=== PATIENT | female | born 1960 | race Caucasian/White ===

== ENCOUNTER 2016-11-15 16:45 | Emergency (ER) | payer MEDICARE, MEDICAID ==
[~2016-11-15] VITALS: Ht 162.6 cm; Wt 74.8 kg
[~2016-11-15 16:45] MED LIST: ACET-2178 PO; AMLO10TA80 PO; ARIP10TA16 PO; ASPI-1079 PO; BACL-141 PO; CIPR-213 PO; CITA20TA19 PO; CLON0.1T PO; FERR-63 PO; FLUO20CA33 PO; HYDR-3927 PO; HYDR100T26 PO; LISI-604 PO; LORA-250 PO; METF10002 PO; METO25TA6 PO; NICO1PAT15 TP; OLAN5TAB3 PO; PREG50CA PO; PROT40 PO; QUET100T PO; TEMA15CA PO; TRAM50TA73 PO
[2016-11-15] MEDS ORDERED: SODIUM CHLORIDE 0.9% 1,000 ML IV ONE (17:36)
[2016-11-15] MEDS ORDERED: ONDANSETRON HCL 4MG/2ML VIAL IV ONE (17:45)
[2016-11-15 17:59] LABS: BASOPHILS % 0.4 % (0.0-2.0); EOSINOPHILS % 3.2 % (0.0-5.0); HEMATOCRIT. 36.4 % (36.0-48.0); HEMOGLOBIN. 11.9 g/dL (12.0-16.0); LYMPHOCYTES % 21.1 % (20.0-50.0); MEAN CORPUSCULAR HEMOGLOBIN 28.1 pg (28.0-32.0); MEAN CORPUSCULAR HGB CONC 32.6 g/dL (31.0-37.0); MEAN CORPUSCULAR VOLUME 86.3 fL (81.0-99.0); MEAN PLATELET VOLUME 8.3 fl (7.4-10.4); NEUTROPHILS % 67.3 % (40.0-76.0); PLATELET 65 x1000/uL (130-400); RED BLOOD CELL COUNT 4.22 mill/uL (4.2-5.4); RED CELL DISTRIBUTION WIDTH 16.9 % (11.6-14.6); WHITE BLOOD COUNT 2.9 x1000/uL (4.5-11.0)
[2016-11-15] MEDS ORDERED: IBUPROFEN 800MG TABLET PO ONE (18:00)
[2016-11-15 18:16] LABS: ALANINE AMINOTRANSFERASE 149 IU/L (13-61); ALBUMIN 2.6 g/dL (3.4-5.0); ANION GAP 9; BETA HYDROXYBUTYRATE 0.1 mMol/L (0.0-0.3); CALCIUM 8.5 mg/dL (8.5-10.1); CARBON DIOXIDE 26 mEq/L (21-32); CHLORIDE 107 mEq/L (98-107); ETHANOL BLOOD < 10 mg/dL; INDEX HEMOLYSI 1 (1-3); INDEX ICTERIC 1 (1-4); INDEX LIPEMIC 1 (1-3); LIPASE 308 IU/L (73-393); NT PRO B-TYPE NATRIURETIC PEP 41 pg/mL (5-125); TROPONIN I < 0.02 ng/mL (0.00-0.04); UREA NITROGEN BLOOD 13 mg/dL (7-21); eGFR > 60 mL/min (>60)
[2016-11-15] MEDS ORDERED: INSULIN REGULAR (HUMULIN R) 300UNITS/3ML IV ONE (19:00)
[2016-11-15] MEDS ORDERED: LOPERAMIDE HCL 2MG CAPSULE PO ONE (19:30)
[2016-11-15 21:20] VITALS: BP 170/80
== END 2016-11-15 21:20 | disposition home or self-care (01) ==
LOC: ER 16:46
DX: E11.65 Type 2 diabetes mellitus with hyperglycemia (principal); K52.9 Noninfective gastroenteritis and colitis, unspecified; I11.0 Hypertensive heart disease with heart failure; I50.9 Heart failure, unspecified; J44.9 Chronic obstructive pulmonary disease, unspecified; F32.9 Major depressive disorder, single episode, unspecified; I25.2 Old myocardial infarction; Z88.0 Allergy status to penicillin; Z79.82 Long term (current) use of aspirin; Z79.899 Other long term (current) drug therapy
CPT/HCPCS: 36415; 71010; 80053; 82010; 82962; 83690; 83880; 84484; 85025; 93005; 96361; 96374; 96375; 99285; G0482; J1815; J2405; J7030

== ENCOUNTER 2016-11-15 21:39 | Emergency (ER) | payer MEDICARE, MEDICAID ==
[~2016-11-15] VITALS: Ht 160 cm; Wt 69.0 kg
[2016-11-16 00:56] LABS: BASOPHILS % 0.9 % (0.0-2.0); CHLORIDE 109 mEq/L (98-107); EOSINOPHILS % 4.8 % (0.0-5.0); HEMATOCRIT. 33.5 % (36.0-48.0); INDEX HEMOLYSI 1 (1-3); INDEX ICTERIC 1 (1-4); INDEX LIPEMIC 1 (1-3); LYMPHOCYTES % 25.3 % (20.0-50.0); MEAN CORPUSCULAR HEMOGLOBIN 28.2 pg (28.0-32.0); MEAN CORPUSCULAR HGB CONC 32.9 g/dL (31.0-37.0); MEAN CORPUSCULAR VOLUME 85.6 fL (81.0-99.0); MEAN PLATELET VOLUME 8.7 fl (7.4-10.4); MONOCYTES % 8.5 % (2.0-8.0); NEUTROPHILS % 60.5 % (40.0-76.0); PLATELET 64 x1000/uL (130-400); RED BLOOD CELL COUNT 3.91 mill/uL (4.2-5.4); RED CELL DISTRIBUTION WIDTH 16.8 % (11.6-14.6); WHITE BLOOD COUNT 2.5 x1000/uL (4.5-11.0)
[2016-11-16 01:02] LABS: ACETAMINOPHEN < 2 ug/mL (10-30); ANION GAP 11; CALCIUM 8.2 mg/dL (8.5-10.1); CARBON DIOXIDE 24 mEq/L (21-32); ETHANOL BLOOD < 10 mg/dL; UREA NITROGEN BLOOD 14 mg/dL (7-21); eGFR > 60 mL/min (>60)
[2016-11-16] MEDS ORDERED: INSULIN REGULAR (HUMULIN R) 300UNITS/3ML SUBCUT ONE (01:30)
[2016-11-16 02:00] LABS: *AMPHETAMINES SCREEN URINE NEGATIVE (NEGATIVE); *BARBITURATES SCREEN URINE NEGATIVE (NEGATIVE); *BENZODIAZEPINES SCREEN URINE NEGATIVE (NEGATIVE); *COCAINE SCREEN URINE NEGATIVE (NEGATIVE); CANNABINOID URINE SCREEN NEGATIVE (NEGATIVE); ECSTASY MDMA SCREEN URINE NEGATIVE (NEGATIVE); METHADONE URINE SCREEN NEGATIVE (NEGATIVE); OPIATES URINE SCREEN NEGATIVE (NEGATIVE); PHENCYCLIDINE URINE SCREEN NEGATIVE (NEGATIVE)
[2016-11-16] MEDS ORDERED: LORAZEPAM 1MG TABLET PO ONE ×2 (07:00→13:45)
[2016-11-16] MEDS ORDERED: ACETAMINOPHEN 500MG TABLET PO ONE (11:30)
[2016-11-16] MEDS ORDERED: LISINOPRIL 20MG TABLET PO ONE (13:45)
[2016-11-16] MEDS ORDERED: AMLODIPINE 10MG TABLET PO ONE (13:45)
[2016-11-16 16:19] VITALS: BP 142/73
== END 2016-11-16 18:32 ==
LOC: ER 21:39
DX: R45.851 Suicidal ideations (principal); R44.0 Auditory hallucinations; Z79.82 Long term (current) use of aspirin; F41.9 Anxiety disorder, unspecified; F32.9 Major depressive disorder, single episode, unspecified; E11.9 Type 2 diabetes mellitus without complications; Z87.898 Personal history of other specified conditions; J44.9 Chronic obstructive pulmonary disease, unspecified; Z79.4 Long term (current) use of insulin; Z88.0 Allergy status to penicillin; I25.2 Old myocardial infarction; I50.9 Heart failure, unspecified; Z91.012 Allergy to eggs; Z91.013 Allergy to seafood; Z91.09 Other allergy status, other than to drugs and biological substances
CPT/HCPCS: 36415; 80048; 80305; 80307; 80329; 82962; 85025; 96372; 99285; G0482; J1815